=== PATIENT | male | born 1965 | race Caucasian/White ===

== ENCOUNTER 2020-07-29 19:24 | Inpatient (IN) | payer BC ==
[2020-07-29] MEDS ORDERED: ALBUTEROL NEB (CONC) 2.5 MG/0.5 ML INHALATION STA (20:05)
[2020-07-29] MEDS ORDERED: SODIUM CHLORIDE 0.9% 500 ML 500 ML IV STA (20:05)
[2020-07-29] MEDS ORDERED: IPRATROPIUM-ALBUTEROL 3 ML NEB INHALATION STA (20:05)
[2020-07-29] MEDS ORDERED: methylPREDNISolone SOD SUCCI 125 MG/2 ML VIAL IV STA (20:05)
--- NOTE | 2020-07-29 20:15 | ED ---
SOB HPI - General Source: patient Mode of arrival: ambulatory Limitations: no limitations <Yarelis Martins - Last Filed: 07/29/20 23:19> <Brielle Huffamn - Last Filed: 07/31/20 10:41> - General Chief Complaint: Shortness of Breath Stated Complaint: SOB/Chest Pain Time Seen by Provider: 07/29/20 19:44 - History of Present Illness Initial Comments: 55-year-old male patient presents to the emergency department today for evaluation of shortness of breath and right-sided chest pain. Patient is reporting a specific point of pain to the right upper chest especially when taking a deep breath. Patient states he does have a history of COPD due to a long history of smoking. He is still currently a smoker. States he does cough up sputum on a daily basis, reports no change in color and no hemoptysis. Denies any fever or chills. Denies nausea or vomiting. States he does feel more short of breath than usual especially with activity. States he was working outside all day yesterday is not sure if this is contributing. He did have COVID-19 in May. Denies history of blood clot or cardiac disease. Does not wear oxygen at home. Does not do any breathing treatments or have inhalers at this time. Patient denies any recent rash, abdominal pain, diarrhea, constipation, back pain, numbness, tingling, dizziness, weakness, hematuria, dysuria, urinary urgency, urinary frequency, headache, visual changes, or any other complaints. (Yarelis Martins) - Related Data Home Medications Medication Instructions Recorded Confirmed Acetaminophen/Caffeine [Excedrin 2 tab PO DAILY PRN 07/29/20 07/29/20 Tension Headache Cplt] Anibal Back & Body 2 tab PO DAILY PRN 07/29/20 07/29/20 Ibuprofen [Advil] 400 mg PO DAILY PRN 07/29/20 07/29/20 Previous Rx's Medication Instructions Recorded HYDROcodone/APAP 5-325MG [[place] 1 tab PO Q4HR PRN 3 Days #18 tab 07/30/20 5-325] amLODIPine [Norvasc] 10 mg PO DAILY #30 tab 07/30/20 metFORMIN HCL [Glucophage] 500 mg PO BID #60 tab 07/30/20 Allergies Allergy/AdvReac Type Severity Reaction Status Date / Time Penicillins Allergy Unknown Verified 07/29/20 23:31 Review of Systems ROS Other: All systems not noted in ROS Statement are negative. <Yarelis Martins - Last Filed: 07/29/20 23:19> ROS Other: All systems not noted in ROS Statement are negative. <Brielle Huffman Donn - Last Filed: 07/31/20 10:41> ROS Statement: Those systems with pertinent positive or pertinent negative responses have been documented in the HPI. Past Medical History Past Medical History: Diabetes Mellitus, Hypertension History of Any Multi-Drug Resistant Organisms: None Reported Past Surgical History: Back Surgery Past Psychological History: No Psychological Hx Reported Smoking Status: Current every day smoker Past Alcohol Use History: Occasional Past Drug Use History: None Reported <Yarelis Martins - Last Filed: 07/29/20 23:19> General Exam Limitations: no limitations General appearance: alert, in no apparent distress, other (This is a well- developed, well-nourished adult male patient in no acute distress. Vital signs upon presentation are temperature 97.9F, pulse 88, respirations 22, blood pressure 214/106, pulse ox 98% on room air.) Respiratory exam: Present: respiratory distress (Mild), rales (Right lung), accessory muscle use, other (Tachypnea, abdominal accessory muscle use.). Absent: wheezes, rhonchi, stridor Cardiovascular Exam: Present: regular rate, normal rhythm, normal heart sounds. Absent: systolic murmur, diastolic murmur, rubs, gallop, clicks GI/Abdominal exam: Present: soft, normal bowel sounds. Absent: distended, tenderness, guarding, rebound, rigid Neurological exam: Present: alert, oriented X3, CN II-XII intact Psychiatric exam: Present: normal affect, normal mood Skin exam: Present: warm, dry, intact, normal color. Absent: rash <Yarelis Martins - Last Filed: 07/29/20 23:19> Course Vital Signs 07/29/20 07/29/20 07/29/20 19:25 19:50 21:24 Temperature 97.9 F Pulse Rate 88 90 Respiratory 22 19 18 Rate Blood Pressure 214/106 186/90 O2 Sat by Pulse 98 Oximetry 07/29/20 07/29/20 07/29/20 21:34 21:41 22:58 Temperature Pulse Rate 76 76 82 Respiratory 18 Rate Blood Pressure 185/104 O2 Sat by Pulse 92 L Oximetry 07/30/20 00:00 Temperature Pulse Rate 82 Respiratory 16 Rate Blood Pressure 174/103 O2 Sat by Pulse 95 Oximetry Medical Decision Making - Lab Data Result diagrams: 07/29/20 20:09 07/29/20 20:09 - EKG Data -: EKG Interpreted by Ks - Radiology Data Radiology results: report reviewed, image reviewed <Yarelis Martins - Last Filed: 07/29/20 23:19> - Lab Data Result diagrams: 07/29/20 20:09 07/30/20 11:58 <Brielle Huffman - Last Filed: 07/31/20 10:41> - Medical Decision Making 55-year-old male patient presents to the emergency department today for evaluation of shortness of breath and right-sided chest pain started yesterday. Physical examination did reveal crackles throughout the right posterior lung browning. Labs reviewed and revealed normal white blood cell count. Creatinine elevated at 1.54. Glucose 175. Chest x-ray did show an 8 cm mass on the right lung. CT chest with contrast was obtained and shows an 8 cm x 9 cm x 6 cm bronchogenic mass that is compressing the superior vena cava and the truncal anterior. I did discuss findings and results with the patient. After a long discussion and encouragement by staff and his he is agreeable to staying in the hospital for further evaluation. Blood pressures have been elevated while here he was given a dose of Vasotec. He is also given a nicotine patch. He'll be admitted to [facility], Dr. Ruelas is accepting. (Yarelis Martins) I was available for consultation in the emergency department. The history and physical exam were done by the midlevel provider. I was consulted for this patients care. I reviewed the case with the midlevel provider and based on their presentation of the patient, I agree with the assessment, medical decision making and plan of care as documented. Chart was dictated using [employer] dictation software. Attempts were made to correct any dictation errors however some typographical errors may persist. Patient was seen during a national state of emergency due to the Covid-19 pandemic. (Brielle Huffman) - Lab Data Lab Results 07/29/20 07/29/20 07/29/20 Range/Units 20:09 20:09 20:09 WBC 8.0 (3.8-10.6) k/uL RBC 4.72 (4.30-5.90) m/uL Hgb 14.3 (13.0-17.5) gm/dL Hct 42.3 (39.0-53.0) % MCV 89.6 (80.0-100.0) fL MCH 30.4 (25.0-35.0) pg MCHC 33.9 (31.0-37.0) g/dL RDW 15.0 (11.5-15.5) % Plt Count 241 (150-450) k/uL MPV 6.9 Neutrophils % 71 % Lymphocytes % 21 % Monocytes % 5 % Eosinophils % 2 % Basophils % 1 % Neutrophils # 5.7 (1.3-7.7) k/uL Lymphocytes # 1.6 (1.0-4.8) k/uL Monocytes # 0.4 (0-1.0) k/uL Eosinophils # 0.1 (0-0.7) k/uL Basophils # 0.1 (0-0.2) k/uL PT 9.6 (9.0-12.0) sec INR 0.9 (<1.2) APTT 23.7 (22.0-30.0) sec Sodium 139 (137-145) mmol/L Potassium 4.8 (3.5-5.1) mmol/L Chloride 102 (98-107) mmol/L Carbon Dioxide 25 (22-30) mmol/L Anion Gap 12 mmol/L BUN 20 (9-20) mg/dL Creatinine 1.54 H (0.66-1.25) mg/dL Est GFR (CKD-EPI)AfAm 59 (>60 ml/min/1.73 sqM) Est GFR (CKD-EPI)NonAf 51 (>60 ml/min/1.73 sqM) Glucose 175 H (74-99) mg/dL Estimated Ave Glu mg/dL Hemoglobin A1c (4.0-6.0) % Plasma Lactic Acid Niall (0.7-2.0) mmol/L Calcium 9.9 (8.4-10.2) mg/dL Total Bilirubin 0.5 (0.2-1.3) mg/dL AST 25 (17-59) U/L ALT 14 (4-49) U/L Alkaline Phosphatase 120 (38-126) U/L Troponin I (0.000-0.034) ng/mL Total Protein 8.0 (6.3-8.2) g/dL Albumin 4.2 (3.5-5.0) g/dL Coronavirus (PCR) (Not Detectd) 07/29/20 07/29/20 07/29/20 Range/Units 20:09 20:09 20:09 WBC (3.8-10.6) k/uL RBC (4.30-5.90) m/uL Hgb (13.0-17.5) gm/dL Hct (39.0-53.0) % MCV (80.0-100.0) fL MCH (25.0-35.0) pg MCHC (31.0-37.0) g/dL RDW (11.5-15.5) % Plt Count (150-450) k/uL MPV Neutrophils % % Lymphocytes % % Monocytes % % Eosinophils % % Basophils % % Neutrophils # (1.3-7.7) k/uL Lymphocytes # (1.0-4.8) k/uL Monocytes # (0-1.0) k/uL Eosinophils # (0-0.7) k/uL Basophils # (0-0.2) k/uL PT (9.0-12.0) sec INR (<1.2) APTT (22.0-30.0) sec Sodium (137-145) mmol/L Potassium (3.5-5.1) mmol/L Chloride (98-107) mmol/L Carbon Dioxide (22-30) mmol/L Anion Gap mmol/L BUN (9-20) mg/dL Creatinine (0.66-1.25) mg/dL Est GFR (CKD-EPI)AfAm (>60 ml/min/1.73 sqM) Est GFR (CKD-EPI)NonAf (>60 ml/min/1.73 sqM) Glucose (74-99) mg/dL Estimated Ave Glu mg/dL 192 Hemoglobin A1c 8.3 H (4.0-6.0) % Plasma Lactic Acid Niall 1.3 (0.7-2.0) mmol/L Calcium (8.4-10.2) mg/dL Total Bilirubin (0.2-1.3) mg/dL AST (17-59) U/L ALT (4-49) U/L Alkaline Phosphatase (38-126) U/L Troponin I <0.012 (0.000-0.034) ng/mL Total Protein (6.3-8.2) g/dL Albumin (3.5-5.0) g/dL Coronavirus (PCR) (Not Detectd) 07/29/20 Range/Units 23:44 WBC (3.8-10.6) k/uL RBC (4.30-5.90) m/uL Hgb (13.0-17.5) gm/dL Hct (39.0-53.0) % MCV (80.0-100.0) fL MCH (25.0-35.0) pg MCHC (31.0-37.0) g/dL RDW (11.5-15.5) % Plt Count (150-450) k/uL MPV Neutrophils % % Lymphocytes % % Monocytes % % Eosinophils % % Basophils % % Neutrophils # (1.3-7.7) k/uL Lymphocytes # (1.0-4.8) k/uL Monocytes # (0-1.0) k/uL Eosinophils # (0-0.7) k/uL Basophils # (0-0.2) k/uL PT (9.0-12.0) sec INR (<1.2) APTT (22.0-30.0) sec Sodium (137-145) mmol/L Potassium (3.5-5.1) mmol/L Chloride (98-107) mmol/L Carbon Dioxide (22-30) mmol/L Anion Gap mmol/L BUN (9-20) mg/dL Creatinine (0.66-1.25) mg/dL Est GFR (CKD-EPI)AfAm (>60 ml/min/1.73 sqM) Est GFR (CKD-EPI)NonAf (>60 ml/min/1.73 sqM) Glucose (74-99) mg/dL Estimated Ave Glu mg/dL Hemoglobin A1c (4.0-6.0) % Plasma Lactic Acid Niall (0.7-2.0) mmol/L Calcium (8.4-10.2) mg/dL Total Bilirubin (0.2-1.3) mg/dL AST (17-59) U/L ALT (4-49) U/L Alkaline Phosphatase (38-126) U/L Troponin I (0.000-0.034) ng/mL Total Protein (6.3-8.2) g/dL Albumin (3.5-5.0) g/dL Coronavirus (PCR) Not Detected (Not Detectd) - EKG Data EKG Comments: EKG obtained at 1937 shows normal sinus rhythm with a ventricular rate of 80, VT interval 158, QR cheondoism 88, QT 368, QTC 424. No evidence of ST elevation or depression though the exam is somewhat limited due to motion artifact from tachypnea. (Yarelis Martins) - Radiology Data Two-view x-ray of the chest is obtained. Report is reviewed in its entirety. Impression by Dr. Ravi Corea shows new 8 cm bronchitic mass. Interstitial radiographic findings and correlate with a clinical diagnosis of interstitial phase pulmonary edema. CT chest with contrast was obtained. Report was reviewed in its entirety. 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 There is evidence that it is compressing the superior vena cava and the truncus anterior. (Yarelis Martins) Disposition Decision to Admit Reason: Admit from EC Decision Date: 07/29/20 Decision Time: 22:58 <Yarelis Martins - Last Filed: 07/29/20 23:19> <Brielle Huffman - Last Filed: 07/31/20 10:41> Clinical Impression: Mass of right lung, Dyspnea Disposition: ADMITTED IP TO THIS HOSP Condition: Serious
[2020-07-29 20:20] LABS: Basophils # (A) 0.1 k/uL (0-0.2); Basophils % (A) 1 %; Eosinophils # (A) 0.1 k/uL (0-0.7); Eosinophils % (A) 2 %; HCT 42.3 % (39.0-53.0); HGB 14.3 gm/dL (13.0-17.5); Lymphocytes # (A) 1.6 k/uL (1.0-4.8); Lymphocytes % (A) 21 %; MCH 30.4 pg (25.0-35.0); MCHC 33.9 g/dL (31.0-37.0); MCV 89.6 fL (80.0-100.0); Mean Platelet Volume 6.9; Monocytes # (A) 0.4 k/uL (0-1.0); Monocytes % (A) 5 %; Neutrophils # (A) 5.7 k/uL (1.3-7.7); Neutrophils % (A) 71 %; Platelet Count 241 k/uL (150-450); RBC 4.72 m/uL (4.30-5.90)
--- NOTE | 2020-07-29 20:29 | XR ---
EXAMINATION: XR chest 2V DATE AND TIME: 07/29/2020 8:16 PM CLINICAL INDICATION: PHH; difficulty breathing TECHNIQUE: Departmental protocol COMPARISON: 04/14/2012 FINDINGS: There is an approximately 8 cm right upper lobe ill-defined mass laterally. This is not seen on the p rior 2012 radiograph. The interface between the mass and the right suprahilar position is not well se en. There is a 1 cm nodular opacity medially cephalad to this mass. There are no other lung nodules. There is a coarse reticular pattern of increased density throughout the lung bases bilaterally, silho uetting the pulmonary vasculature arborization, and consistent with a clinical diagnosis of interstit ial phase pulmonary edema. Differential includes chronic interstitial lung change, and was not seen o n the prior 2012 radiograph. The pleural spaces are negative. The cardiac silhouette is not enlarged. The remainder of the mediastinal silhouette is unremarkable. The skeletal structures and soft tissues are negative for acute findings. IMPRESSION: 1) NEW 8 CM BRONCHOGENIC MASS. 2) Interstitial radiographic findings can correlate with a clinical diagnosis of interstitial phase pulmonary edema.
[2020-07-29] MEDS ORDERED: MORPHINE SULFATE 2 MG/ML SYRINGE IVP STA (20:31)
[2020-07-29] MEDS ORDERED: KETOROLAC 15 MG/ML 1 ML VIAL IVP STA (20:31)
[2020-07-29 20:32] LABS: Albumin 4.2 g/dL (3.5-5.0); Calcium 9.9 mg/dL (8.4-10.2); Potassium 4.8 mmol/L (3.5-5.1); Total Bilirubin 0.5 mg/dL (0.2-1.3)
[2020-07-29] MEDS ORDERED: RX INFO: IV CONTRAST WAS GIVEN 1 EACH MISC MISCELLANE PRN (20:33)
[2020-07-29 20:36] LABS: INR 0.9 (<1.2); Partial Thromboplastin Time 23.7 sec (22.0-30.0); Prothrombin Time 9.6 sec (9.0-12.0)
[2020-07-29] MEDS ORDERED: ENALAPRILAT 1.25 MG/ML 1 ML VIAL IVP STA (21:26)
--- NOTE | 2020-07-29 21:43 | CT ---
EXAMINATION TYPE: CT chest w con DATE OF EXAM: 07/29/2020 COMPARISON: Chest radiograph 07/21/2020 HISTORY: Rt upper lobe mass. Hx copd. CT DLP: 382.7 mGycm Automated exposure control for dose reduction was used. TECHNIQUE: CT scan of the chest is performed with IV Contrast, patient injected with 100 mL of Isovue 300. MIP Images are created on CT scanner and reviewed. 3D reconstructed images are created on an [employer]chron[employer] workstation and reviewed. FINDINGS: Advanced emphysematous changes are noted The bronchogenic mass measures 8 cm CC x 7 cm AP x 6 cm transverse. It is lobulated and centered late rally within the right upper lobe. There is contiguous opacity extending from the mass to prominent r ight suprahilar, right paratracheal, and precarinal adenopathy, with moderate caliber narrowing of th e superior vena cava and with mild caliber narrowing of the truncus anterior. There are a few scattered 2 x 1 cm and 1 x 1 cm soft tissue ill-defined nodules in subpleural positio n, related to the right hemidiaphragm. There is no pleural effusion, and no pneumothorax. OTHER: No additional significant abnormality is seen. IMPRESSION: BRONCHOGENIC NEOPLASM.
[2020-07-29] MEDS ORDERED: NICOTINE 21MG/24HR PATCH TRANSDERM STA (22:31)
[2020-07-29] MEDS ORDERED: NALOXONE 0.4 MG/ML 1 ML VIAL IV PRN (22:54)
[2020-07-29] MEDS ORDERED: ACETAMINOPHEN TAB 325 MG TAB PO PRN (22:54)
[2020-07-29] MEDS ORDERED: MORPHINE SULFATE 4 MG/ML SYRINGE IV PRN (22:54)
[2020-07-29] MEDS ORDERED: ONDANSETRON 4 MG/2 ML VIAL IVP PRN (22:54)
[2020-07-30] MEDS ORDERED: ENALAPRILAT 1.25 MG/ML 1 ML VIAL IVP STA (00:16)
[2020-07-30] MEDS ORDERED: ENALAPRILAT 1.25 MG/ML 1 ML VIAL IVP PRN (00:16)
--- NOTE | 2020-07-30 02:49 | P.HPIM ---
History of Present Illness H&P Date: 07/29/20 The patient is a 55-year-old male with a PMH of type II DM, hypertension, tobacco abuse, and COPD who presented to the emergency room with complaints of right-sided chest discomfort. The patient notes that he developed gradually worsening right-sided pleuritic chest pain 2 days ago. He reports that initially the pain was occurring only with coughing but since earlier today, also happened with deep inspiration. Reported that the pain has improved significantly at the time of interview. He denied additional complaints. Denied fever, chills, cough, weight loss, nausea, vomiting, abdominal pain. Patient underwent an extensive evaluation in the emergency room which was all reviewed. CT chest revealed a large bronchogenic mass consistent with neoplasm at 8 cm x 7 cm x 6 cm in the right upper lobe with adenopathy and ill-defined nodules in the right hemidiaphragm. EKG revealed normal sinus rhythm at 80 bpm. Laboratory evaluation was reviewed and was remarkable for creatinine 1.54. Review of Systems Pertinent positives and negatives as discussed in HPI, a complete review of systems was performed and all other systems are negative. Past Medical History Past Medical History: Diabetes Mellitus, Hypertension History of Any Multi-Drug Resistant Organisms: None Reported Past Surgical History: Back Surgery Past Psychological History: No Psychological Hx Reported Smoking Status: Current every day smoker Past Alcohol Use History: Occasional Past Drug Use History: None Reported Medications and Allergies Home Medications Medication Instructions Recorded Confirmed Type Acetaminophen/Caffeine [Excedrin 2 tab PO DAILY PRN 07/29/20 07/29/20 History Tension Headache Cplt] Anibal Back & Body 2 tab PO DAILY PRN 07/29/20 07/29/20 History Ibuprofen [Advil] 400 mg PO DAILY PRN 07/29/20 07/29/20 History Allergies Allergy/AdvReac Type Severity Reaction Status Date / Time Penicillins Allergy Unknown Verified 07/29/20 23:31 Physical Exam Vitals: Vital Signs Temp Pulse Resp BP Pulse Ox 07/29/20 22:58 82 18 185/104 92 L 07/29/20 21:41 76 07/29/20 21:34 76 07/29/20 21:24 90 18 186/90 07/29/20 19:50 19 07/29/20 19:25 97.9 F 88 22 214/106 98 Intake and Output 07/29/20 07/29/20 07/30/20 14:59 22:59 06:59 Other: Weight 83.915 kg General: non toxic, no distress, appears at stated age, normal weight Derm: no unusual rashes/lesions no unusual ecchymoses, warm, dry Head: atraumatic, normocephalic, symmetric Eyes: EOMI, no lid lag, anicteric sclera, pupils equal round reactive to light ENT: Nose and ears atraumatic, no thrush, no pharyngeal erythema Neck: No thyromegaly, no cervical lymphadenopathy, trachea midline, supple Mouth: no lip lesion, mucus membranes moist Cardiovascular: S1S2 reg, no murmur, positive posterior tibial pulse bilateral, no edema, capillary refill less than 2 seconds Lungs: Bilateral expiratory coarse breath sounds and mild wheezing, no rales, no accessory muscle use Abdominal: soft, nontender to palpation, no guarding, no appreciable organomegaly, normal bowel sounds Ext: no gross muscle atrophy, muscle strength 5 out of 5 in all 4 extremities grossly, no contractures, Neuro: CN II-XI grossly intact, light touch intact all 4 extremities, finger to nose within normal limits, Psych: Alert, oriented, appropriate affect Results CBC & Chem 7: 07/29/20 20:09 07/29/20 20:09 Labs: Abnormal Lab Results - Last 24 Hours (Table) 07/29/20 Range/Units 20:09 Creatinine 1.54 H (0.66-1.25) mg/dL Glucose 175 H (74-99) mg/dL Assessment and Plan Plan: Chest pain likely due to newly diagnosed large right sided bronchogenic neoplasm -Oncology consult for guidance regarding preferred site of biopsy -Patient notes that he does not wish to undergo conventional chemotherapy or radiation since his father from lung cancer after prolonged and painful course with the above -The patient wishes to discuss his case with oncology Hypertension -Patient with poor follow-up with his primary care. -Start [facility] Chronic conditions: Type II DM -Lispro insulin sliding scale with blood glucose monitoring -Check A1c DVT prophylaxis -Lovenox The patient is admitted with an anticipated more than 2 midnight stay for evaluation of chest pain CODE STATUS: Full Code Discussed with: Patient Anticipated discharge date: 2-[address]: Home A total of 35 minutes was spent on the care of this complex patient more than 50% of the time was spent in counseling and care coordination.
[2020-07-30] MEDS ORDERED: IPRATROPIUM-ALBUTEROL 3 ML NEB INHALATION PRN (02:57)
[2020-07-30] MEDS: IPRATROPIUM-ALBUTEROL 3 ML NEB INHALATION SCH ×2 (07:03→11:23)
[2020-07-30 08:33] VITALS: BP 152/75; RESP 18; TEMP 98
[2020-07-30] MEDS ORDERED: amLODIPine 10 MG TAB PO SCH (09:00)
[2020-07-30] MEDS ORDERED: ENOXAPARIN 40 MG/0.4 ML SYRINGE SQ SCH (09:00)
[2020-07-30] MEDS ORDERED: NICOTINE 21MG/24HR PATCH TRANSDERM SCH (09:00)
[2020-07-30 11:38] VITALS: PULSE 95
[2020-07-30 12:12] LABS: Hemoglobin A1C 8.3 % (4.0-6.0)
[2020-07-30 12:53] LABS: ALT 17 U/L (4-49); AST 20 U/L (17-59); African American GFR (CKD) 50 (>60 ml/min/1.73 sqM); Albumin 4.1 g/dL (3.5-5.0); Albumin/Globulin Ratio 1.1; Alkaline Phosphatase 120 U/L (38-126); Anion Gap 11 mmol/L; Blood Urea Nitrogen 32 mg/dL (9-20); Calcium 9.5 mg/dL (8.4-10.2); Carbon Dioxide 24 mmol/L (22-30); Chloride 97 mmol/L (98-107); Globulin 3.6 g/dL; LDH 622 U/L (313-618); Non-African American GFR(CKD) 44 (>60 ml/min/1.73 sqM); Potassium 5.6 mmol/L (3.5-5.1); Sodium 132 mmol/L (137-145); Total Bilirubin 0.4 mg/dL (0.2-1.3); Total Protein 7.7 g/dL (6.3-8.2); Uric Acid 8.2 mg/dL (3.5-8.5)
[2020-07-30 13:05] LABS: Glucose 597 mg/dL (74-99)
--- NOTE | 2020-07-30 13:14 | P.CONS ---
History of Present Illness - Reason for Consult Consult date: 07/30/20 New Large Lung Mass concerning for malignancy Requesting physician: Steve Ruelas - History of Present Illness Mr. Bae is a 55 year old male who has known history of Type 2 diabetes, Hypertension, Tobacco and Nicotine dependence, COPD. He presented with right sided chest pain and a persistent cough. Symptoms worsened over the past few days. Denied fever, chills, revent weight loss, nausea or vomiting. CT of the chest was performed revealing CT chest revealed a large bronchogenic mass consistent with neoplasm at 8 cm x 7 cm x 6 cm in the right upper lobe with adenopathy and ill-defined nodules in the right hemidiaphragm. He has had increased difficulty swallowing, it feels as though getting stuck, this maybe secondary to large mediastinal tumor. He is adament about not wanting chmeo or radiation if cancer, although as we continue to educate he is more open to the idea given there are clear expectations of a therapy recommendation. Will ask Nursing to schedule with Dr. Guillen for Bronch approach, and Dr. Ferro one week. He does not take care of himself, does not drink water, manage his diabetes, he smokes and drinkis quite a bit of caffeine. Review of Systems All systems: negative Constitutional: Reports as per HPI Past Medical History Past Medical History: Diabetes Mellitus, Hypertension History of Any Multi-Drug Resistant Organisms: None Reported Past Surgical History: Back Surgery Past Psychological History: No Psychological Hx Reported Smoking Status: Current every day smoker Past Alcohol Use History: Occasional Past Drug Use History: None Reported Medications and Allergies Home Medications Medication Instructions Recorded Confirmed Type Acetaminophen/Caffeine [Excedrin 2 tab PO DAILY PRN 07/29/20 07/29/20 History Tension Headache Cplt] Anibal Back & Body 2 tab PO DAILY PRN 07/29/20 07/29/20 History Ibuprofen [Advil] 400 mg PO DAILY PRN 07/29/20 07/29/20 History amLODIPine [Norvasc] 10 mg PO DAILY #30 tab 07/30/20 Rx Allergies Allergy/AdvReac Type Severity Reaction Status Date / Time Penicillins Allergy Unknown Verified 07/29/20 23:31 Physical Exam Vitals: Vital Signs Temp Pulse Pulse Resp BP BP BP 07/30/20 11:23 80 07/30/20 08:00 98.0 F 95 18 152/75 07/30/20 07:13 76 07/30/20 07:03 76 07/30/20 01:21 98.7 F 91 160/87 07/30/20 01:10 98.7 F 91 160/87 07/30/20 00:00 82 16 174/103 07/29/20 22:58 82 18 185/104 07/29/20 21:41 76 07/29/20 21:34 76 07/29/20 21:24 90 18 186/90 07/29/20 19:50 19 07/29/20 19:25 97.9 F 88 22 214/106 Pulse Ox 07/30/20 11:23 07/30/20 08:00 92 L 07/30/20 07:13 07/30/20 07:03 07/30/20 01:21 98 07/30/20 01:10 98 07/30/20 00:00 95 07/29/20 22:58 92 L 07/29/20 21:41 07/29/20 21:34 07/29/20 21:24 07/29/20 19:50 07/29/20 19:25 98 Intake and Output 07/29/20 07/30/20 07/30/20 22:59 06:59 14:59 Other: Weight 83.915 kg 83.915 kg - Constitutional General appearance: cooperative, no acute distress - EENT Eyes: EOMI, PERRLA, poor dentition ENT: hard of hearing, NA/AT, normal oropharynx Results CBC & Chem 7: 07/29/20 20:09 07/29/20 20:09 Labs: Abnormal Lab Results - Last 24 Hours (Table) 07/29/20 Range/Units 20:09 Creatinine 1.54 H (0.66-1.25) mg/dL Glucose 175 H (74-99) mg/dL CT scan - chest: report reviewed Assessment and Plan (1) Dysphagia Current Visit: Yes Status: Acute Code(s): R13.10 - DYSPHAGIA, UNSPECIFIED SNOMED Code(s): 82111445 (2) Acute renal insufficiency Current Visit: Yes Status: Acute Code(s): N28.9 - DISORDER OF KIDNEY AND URETER, UNSPECIFIED SNOMED Code(s): 863946908 (3) Mass of right lung Current Visit: Yes Status: Acute Code(s): R91.8 - OTHER NONSPECIFIC ABNORMAL FINDING OF LUNG FIELD SNOMED Code(s): 060817363 Plan: Assessment and Recommendations. 1. large Right upper Lobe 8cm Lung Mass: - Suspicious for malignancy, differentials include lung cancer primary versus mediastinal Lymphoma - Patient will be set up to see Dr. Guillen for Bronch and Biopsy hopefully this week. - CT abdomen and Pelvis with contrast this coming week as well as MRI Brain with and Without contrast for complete staging - After above to see Dr. Ferro within one week of Biopsy please 2. Dysphagia: - Possibly from compressive effects of mass - He is very scared of treatment measures such as radiation or chemo, although as explained each modality has a specific goal. Therefore if radiation is recommended the goal is to shrink to relieve symptoms, he seems to be more open to discussing the recommendations after we know more information when assured he will know the goals and potential risks and benefits clearly. His Rimma was also on phone and able to answer questions. 3. Uncontrolled Health Problems: - He refuses to control hhis known diabetes with insulin or other medications, he has no desire to quit smoking, He has no desire to drink water. Explained if he is thinking about moving forward with a treatment that could potentially increase quality of life or lengthen quantity he will not respond well without having better management of the full picture and therefore would most likely endure many unecessary side effects. He is willing to follow-up wo hear all recommendations, but at this time states he will discuss with . 4. Acute Renal Insufficiency: - Likely secondary to poor water intake and diet as well as uncontrolled diabetes. - Will check Urinc acid, LDH for evidence of tumor lysis Discussed with primary team and rn Thank you for allowing us to participate in the care of this patient, we will set up for follow-up and further testing as outpatient.
--- NOTE | 2020-07-30 13:26 | P.DS ---
Providers Date of admission: 07/30/20 02:49 Expected date of discharge: 07/30/20 Attending physician: Steve Ruelas MD Consults: 07/30/20 02:44 Consult Physician Urgent Consulting Provider: Maximo Ferro Consult Reason/Comments: Lung ca Do you want consulting provider notified?: Yes Primary care physician: Noel Chaparro MD Hospital Course: 1. Right Sided Lung mass 2. HTN 3. DM II 4. Nicotine Use 55 year old man with HTN/DM, Nicotine Use presented with right sided chest pain and was found to have RUL 8cm lung mass. He was seen by oncology, who recommended that patient be seen by pulmonology for a bronchoscopy, then with Oncology within one week, and these appointments were arranged. Pt appeared clinically stable, and so was discharged home with plan for outpatient workup going forward. He had indicated that he would not want radiation or chemotherapy due to prior experiences with his dad. However, he would likely greatly benefit from counseling regarding improvement in cancer care in last several decades. He would like to pursue further workup and is amenable to a conversation regarding treatment. Prescribed norco for pain control on discharge, MIPS reviewed. Assessment: Gen: awake, alert HEENT: normocephalic, atraumatic, good hearing acuity, moist mucous membranes Resp: good air exchange, breathing comfortably with no accessory muscle use, clear to auscultation without wheezing, right upper posterior lung field with crackles CVS: good distal perfusion x 4, regular rate and rhythm without murmurs GI: soft, NTTP, ND : no SPT, no CVAT, corbin catheter not present MSK: no pitting edema, no clubbing Neuro: non-focal, moving all extremities Psych: cooperative, euthymic mood Patient Condition at Discharge: Serious Plan - Discharge Summary New Discharge Prescriptions: New amLODIPine [Norvasc] 10 mg PO DAILY #30 tab HYDROcodone/APAP 5-325MG [[place] 5-325] 1 tab PO Q4HR PRN 3 Days #18 tab PRN Reason: Pain Continue Ibuprofen [Advil] 400 mg PO DAILY PRN PRN Reason: BACK PAIN Anibal Back & Body 2 tab PO DAILY PRN PRN Reason: BACK PAIN Acetaminophen/Caffeine [Excedrin Tension Headache Cplt] 2 tab PO DAILY PRN PRN Reason: BACK PAIN Discharge Medication List Acetaminophen/Caffeine [Excedrin Tension Headache Cplt] 2 tab PO DAILY PRN 07/29/20 [History] Ainbal Back & Body 2 tab PO DAILY PRN 07/29/20 [History] Ibuprofen [Advil] 400 mg PO DAILY PRN 07/29/20 [History] HYDROcodone/APAP 5-325MG [[place] 5-325] 1 tab PO Q4HR PRN 3 Days #18 tab 07/30/20 [Rx] amLODIPine [Norvasc] 10 mg PO DAILY #30 tab 07/30/20 [Rx] Follow up Appointment(s)/Referral(s): Maximo Ferro MD [STAFF PHYSICIAN] - 1 Week Jake Schafer MD [STAFF PHYSICIAN] - 1 Week Noel Chaparro MD [Primary Care Provider] - 1-2 days Arun Guillen MD [STAFF PHYSICIAN] - 08/02/20 9:30 am Discharge Disposition: HOME SELF-CARE
[2020-07-30] MEDS ORDERED: SODIUM CHLORIDE 0.9% 1,000 ML IV ONE (13:30)
[2020-07-30] MEDS ORDERED: INSULIN ASPART (NovoLOG) 100 UNIT/ML VIAL SQ ONE ×2 (13:31→16:43)
[2020-07-30 16:39] LABS: Glucose,Whole Blood 339 mg/dL (75-99)
--- NOTE | 2020-08-02 02:57 | CDI ---
Documentation Clarification Form Date: 08/02/2020 From: Mark Arana Phone: If you have a question about this query, please contact Penelope Webber, [employer] at [phone] between 8am and 5pm. Admit Date: 07/30/2020 02:49:00 AM Patient Name: Lex Bae Visit Number: [id number] Discharge Date: 07/30/2020 05:25:00 PM ATTENTION: The Clinical Documentation Specialists (CDI) and [facility] Coding Staff appreciate your assistance in clarifying documentation. Please respond to the clarification below the line at the bottom and electronically sign. The CDI & [facility] Coding staff will review the response and follow-up if needed. Please note: Queries are made part of the Legal Health Record. If you have any questions, please contact the author of this message via ITS. Dr. Steve Ruelas MD., Acute renal insufficiency was documented in the 07/30 consult note. History/Risk Factors:Diabetes Mellitus, Hypertension Clinical Indicators: 55 year old man with HTN/DM, Nicotine Use presented with right sided chest pain and was found to have RUL 8cm lung mass Current BUN/Cr/GFR: 1.54H Treatment: Iv fluids Acute Renal Insufficiency: - Likely secondary to poor water intake and diet as well as uncontrolled diabetes. - Will check Urinc acid, LDH for evidence of tumor lysis In order to capture the severity of condition, please clarify if the condition signifies: Acute kidney injury Other, please specify Unable to determine -- no baseline available MTDD
== END 2020-07-30 17:25 | disposition home or self-care (01) | DRG 182 ==
LOC: EC 19:24 → 6NMEDSUR 23:00 → OBSVTOIN 07-30 02:49
PROVIDERS: ADMIT Internal Medicine; ATTEND Internal Medicine
DX: C34.91 Malignant neoplasm of unspecified part of right bronchus or lung (principal); E11.9 Type 2 diabetes mellitus without complications; F17.200 Nicotine dependence, unspecified, uncomplicated; G44.209 Tension-type headache, unspecified, not intractable; I10 Essential (primary) hypertension; Z86.16 Personal history of COVID-19; J44.9 Chronic obstructive pulmonary disease, unspecified; Z20.822 Contact with and (suspected) exposure to COVID-19; R13.10 Dysphagia, unspecified; N28.9 Disorder of kidney and ureter, unspecified; Z79.899 Other long term (current) drug therapy; Z80.1 Family history of malignant neoplasm of trachea, bronchus and lung; Z88.0 Allergy status to penicillin
CPT/HCPCS: 36415; 71046; 71260; 80053; 83036; 83605; 83615; 83735; 84484; 84550; 85025; 85610; 85730; 87635; 93005; 94640; 96361; 96374; 96375; 99285

== ENCOUNTER 2020-08-04 11:03 | Day surgery (SDC) | payer BC ==
[2020-08-02 16:21] VITALS: BMI 27.2
[~2020-08-04 11:03] MED LIST: ALBUTEROL NEB (CONC) 2.5 MG/0.5 ML INHALATION ONE; LACTATED RINGERS 1,000 ML IV SCH; LIDOCAINE 1% (10MG/ML) FOR IV START INTRADERMA PRN; LIDOCAINE 2% (PF) 20 MG/ML 5 ML VIAL INHALATION ONE; LIDOCAINE VISCOUS 300 MG/15 ML CUP MUCOUS MEM ONE; SODIUM CHLORIDE 0.9% 1,000 ML IV SCH
[2020-08-04 11:54] LABS: Glucose,Whole Blood 209 mg/dL (75-99)
[2020-08-04] MEDS ORDERED: SUCCINYLCHOLINE CHLORIDE 100 MG/5 ML SYR IV ONE (12:19)
[2020-08-04] MEDS ORDERED: MIDAZOLAM 2 MG/2 ML VIAL ONE (12:19)
[2020-08-04] MEDS ORDERED: fentaNYL (PF) 50 MCG/ML 2 ML AMP ONE (12:19)
[2020-08-04] MEDS ORDERED: PROPOFOL 10 MG/ML 20 ML VIAL IV ONE (12:19)
[2020-08-04] MEDS ORDERED: LIDOCAINE 1% INJ 10MG/ML (20 ML MDV) ONE (12:19)
--- NOTE | 2020-08-04 13:08 | P.PCN ---
Date of Procedure: 08/04/20 Preoperative Diagnosis: RUL mass, mediastinal adenopathy Postoperative Diagnosis: RUL mass, mediastinal adenopathy Procedure(s) Performed: Flexible bronchoscopy Transbronchial biopsy of the right upper lobe mass Transbronchial needle aspirate of the right paratracheal lymph node Bronchiolar lavage of the right upper lobe Anesthesia: JENNIFER Surgeon: Arun Guillen Estimated Blood Loss (ml): 0 Pathology: other Condition: stable Disposition: same day Operative Findings: This procedure was done in the endoscopy suite. The procedure was done while the patient was being intubated on a mechanical ventilator. The intubation process was done by PRINTER TECHNICIAN the bedside. Adequate oxygenation was achieved. Following that, an adapter was attached to the #9 orotracheal tube that the patient was intubated with and the procedure was initiated. The flexible bronchoscope was introduced in the distal trachea and airways inspection was done. Distal trachea, and the bilateral mainstem bronchi were within normal limits. Exertional left side included the left upper lobe bronchus, lingular segment, left lower lobe bronchus and the various segments and all of the airways on the left side were within normal limits. Examination of the right-sided fluid the right mainstem bronchus that was within normal. Bronchus intermedius, right middle lobe and the right lower lobe bronchi lungs various segments were all within normal limits. Bronchoscope was moved to the right upper lobe. Right upper lobe was patent. The 3 different segment of the right upper lobe were adequately visualized. The apical segment was extrinsically compressed and I was unable to pass the bronchoscope to see the various subsegments. The posterior segment was partially compressed and the anterior segment was minimally compressed. The anterior and posterior site was were still patent. The 2 subsegments of the posterior segments were visualized. The 2 subsegments in the anterior segment were visualized. At this point, bronchoscope was moved to the distal trachea and utilizing a 19-gauge and a 21-g auge cytology and histology needles, chest prior to biopsies of the right paratracheal lymph node/mass was done. Adequacy of the samples were confirmed by pathology at the bedside. The samples were somewhat cloudy and necrotic consistent with necrotic tumor. Several passes were obtained without any complications and there was no bleeding encountered. Following that, the bronchoscope was moved to the right upper lobe. The apical segment was first biopsy. I was unable to push the forceps into the subsegment of the apical segment of the right upper lobe. There was resistance probably due to anatomic distortion. Test bronchial biopsies of the apical segment was obtained. Following that, transbronchial biopsy of the posterior segment was obtained under fluoroscopic guidance. At the completion of the procedure, a bronchioloalveolar lavage of the apical segment of the posterior segment of the right upper lobe was done. A total of 100 mL of fluid was infused and tendency was suctioned back. The aspirate was nonbloody. No complications. Bronchoscope was removed. Patient will be extubated and following that the patient will be having a chest x-ray done to rule out pneumothorax and the midchest recovery in stable condition. The patient will see back in our office in 1 week to discuss the results of the biopsy and make further recommendations.
[2020-08-04 13:30] VITALS: TEMP 97
[2020-08-04 13:38] LABS: Glucose,Whole Blood 184 mg/dL (75-99)
--- NOTE | 2020-08-04 13:53 | FL ---
EXAMINATION TYPE: FL bronchoscopy DATE OF EXAM: 08/04/2020 COMPARISON: NONE HISTORY: Abnormal chest CT, right upper lobe lung mass Fluoroscopy support supplied to the referring clinician. See dictated report from pulmonary, 28 seco nds fluoroscopy time, 2 intraoperative images document the procedure
[2020-08-04 13:54] VITALS: RESP 18
[2020-08-04 14:15] VITALS: BP 158/90; PULSE 86
--- NOTE | 2020-08-04 14:25 | XR ---
EXAMINATION TYPE: XR chest 1V portable DATE OF EXAM: 08/04/2020 COMPARISON: Prior chest x-ray 07/29/2020 HISTORY: Status post biopsy and bronchoscopy TECHNIQUE: Single frontal view of the chest is obtained. FINDINGS: There is no evident pneumothorax or pleural effusion. Patient's right upper lobe and lung mass, prominence of interstitium is again noted. Cardiac mediastinal silhouette is stable. IMPRESSION: No evident complication status post bronchoscopy and biopsy
== END 2020-08-04 14:47 | disposition home or self-care (01) ==
LOC: ORWHC2ENDO 11:03
PROVIDERS: ATTEND Internal Medicine Critical Care Medicine
DX: C34.11 Malignant neoplasm of upper lobe, right bronchus or lung (principal); R59.0 Localized enlarged lymph nodes; R13.10 Dysphagia, unspecified; J44.9 Chronic obstructive pulmonary disease, unspecified; E11.9 Type 2 diabetes mellitus without complications; I10 Essential (primary) hypertension; F17.210 Nicotine dependence, cigarettes, uncomplicated; Z88.0 Allergy status to penicillin; Z79.891 Long term (current) use of opiate analgesic; Z79.899 Other long term (current) drug therapy; Z79.1 Long term (current) use of non-steroidal anti-inflammatories (NSAID); Z79.84 Long term (current) use of oral hypoglycemic drugs; Z98.890 Other specified postprocedural states; Z90.89 Acquired absence of other organs; Z86.718 Personal history of other venous thrombosis and embolism; Z79.51 Long term (current) use of inhaled steroids; Z83.3 Family history of diabetes mellitus; Z82.49 Family history of ischemic heart disease and other diseases of the circulatory system; Z80.1 Family history of malignant neoplasm of trachea, bronchus and lung; Z80.0 Family history of malignant neoplasm of digestive organs
CPT/HCPCS: 88108; 88305; 88173; 88342; 71045; 31628; 31629; 31624; J2250; J2001; J3010; J0330; J2704; 31633

== ENCOUNTER → 2020-08-12 | Outpatient (CLI) | payer BC ==
--- NOTE | 2020-08-12 18:37 | MR ---
EXAMINATION TYPE: MR brain wo/w con DATE OF EXAM: 08/12/2020 COMPARISON: Head CT 07/03/2007 , 04/15/2013 HISTORY: Initial workup due to lung ca dx TECHNIQUE: Multiplanar, multisequence images of the brain and brainstem is performed without and with IV contras t, utilizing 9 mL intravenous Gadavist . FINDINGS: Diffusion weighted images demonstrate no evidence of a recent infarct or other diffusion ab normality. There is no extra-axial fluid collection. Scattered periventricular, subcortical hyperin tensities are present on inversion recovery T2-weighted sequences, approximately 20-25 lesions are pr esent. The ventricular system and cisternal spaces are normal in size and appearance. The brain volu me is age appropriate. Midline structures demonstrate normal morphology. The craniocervical junction appears within normal limits. Post contrast images demonstrate no abnormal enhancement. The dural venous sinuses appear pa tent. The visualized sinuses are remarkable for chronic focus of probable inflammatory change or poly p within the left sphenoid sinus, ethmoid air cells show mucoperiosteal thickening as do the maxillar y sinuses. And the globes are intact. IMPRESSION: Nonspecific white matter demyelination. No enhancing lesion to suggest metastasis.
== END | disposition home or self-care (01) ==
LOC: RADMRIMAIN 10:45
PROVIDERS: ATTEND Internal Medicine Hematology & Oncology
DX: C34.12 Malignant neoplasm of upper lobe, left bronchus or lung (principal); G37.8 Other specified demyelinating diseases of central nervous system
CPT/HCPCS: 70553; A9585

== ENCOUNTER → 2020-08-13 | Outpatient (CLI) | payer BC ==
--- NOTE | 2020-08-16 10:09 | PE ---
EXAMINATION TYPE: PET CT fusion skull to thigh DATE OF EXAM: 08/13/2020 CLINICAL HISTORY: 55-year-old male initial staging lung cancer. TECHNIQUE: Following the intravenous administration of 11.0 mCi of F-18 FDG, whole body images are performed from the skull base to the midthigh. Images are reviewed on the computer in the coronal, a xial, and sagittal planes. Reconstructed rotating images are created on independent workstation and reviewed on the computer. A localization and attenuation correction CT is performed in conjunction with the PET scan. Glucose level: 174 mg/dL COMPARISON: CT chest 07/21/2020. FINDINGS: PET: Vague focal area of mildly increased activity within the region of the left parotid gland. There may be a mildly prominent 6 mm lymph node or other nodule in this location, referred axial image 29. Shor t interval follow-up contrast enhanced CT neck recommended in 3 months time. Otherwise, physiologic FDG uptake within the neck. There is a dominant right upper lobe mass demonstrating intense hypermetabolism and some central phot openia compatible with central necrosis. The mass measures up to 6.4 cm. Tiny 6 mm satellite nodule along the lateral margin of the mass and additional 6 cm satellite nodule along the posterior margin of the mass. These are too small for accurate PET characterization. In addition, there is abnormal intense hypermetabolism involving an anterior medial right upper lobe subpleural pulmonary nodule measuring 1.4 cm. Abnormal 1.5 cm hypermetabolic right basilar pulmonary nodule. Additional hypermetabolic 1.0 cm basilar right middle lobe pulmonary nodule. 3 right-sided pericardiac lymph nodes are present demonstrating moderate intense hypermetabolism damon uring up to 1.9 and 1.5 cm. There is a intensely hypermetabolic 2.3 cm right hilar lymph node. Large lower right paratracheal lymph node shows extensive central photopenia measuring up to 4.4 x 3. 5 cm suggesting prominent central necrosis. Additional hypermetabolic small 9 mm nodule located along the posterior right renal space probably fa r down in the posterior costophrenic angle. Right infrahilar lymph node measuring 2.3 cm shows no significant FDG uptake and may be reactive. Intensely hypermetabolic 1.8 cm left adrenal nodule. Otherwise, physiologic FDG uptake within the abdomen and pelvis otherwise noted. ATTENUATION CORRECTION CT: Leftward nasal septal deviation. Visualized paranasal sinuses and mastoid air cells are clear. Heart normal size without pericardial effusion. Scattered three-vessel coronary calcifications are pr esent. Ectatic ascending aorta 3.9 cm. Bovine configuration to the aortic arch. Moderate centrilobul ar emphysema with prominent dependent atelectasis in the lungs. Breathing motion artifact. No dilated small bowel, free fluid, or free air. Scattered mild to moderate prostatic calcifications. Normal appendix. Ectatic infrarenal abdominal ao rta measuring up to 2.8 cm. Mild stool burden. No pericolonic inflammatory change. Bladder is collapsed but shows circumferential wall thickening that could be chronic bladder wall hyp ertrophy or cystitis. Prostate gland mildly enlarged at 4.6 cm. No abnormal fluid collection in the p urvashi or pelvic lymphadenopathy. Bones: Mild degenerative change at the hips. No osseous destructive process. IMPRESSION: 1. Centrally necrotic 6.4 cm right upper lobe lung cancer with right hilar and lower right paratrache al lymphadenopathy. The lower right paratracheal lymph node also shows extensive central necrosis brent suring up to 4.4 cm. 2. Metastatic ipsilateral right-sided pulmonary nodules in the right upper lobe anteriorly (1.4 cm) a nd 2 nodules at the right base (measuring up to 1.5 cm). A small 9 mm metastatic deposit is also pres ent in the far posterior right costophrenic sulcus. 3. In addition, there are 3 hypermetabolic right paracardiac metastatic lymph nodes measuring up to 1 .9 cm. 4. Hypermetabolic 1.8 cm left adrenal nodule suspicious for metastases as well. 5. Very mild focal uptake involving a 6 mm nodule within the left parotid gland. This may represent a reactive parotid space lymph node. Three-month follow-up contrast-enhanced CT of the neck recommende d to reassess this area.
== END | disposition home or self-care (01) ==
LOC: RADPETMAIN 13:23
PROVIDERS: ATTEND Internal Medicine Critical Care Medicine
DX: C34.11 Malignant neoplasm of upper lobe, right bronchus or lung (principal); C79.89 Secondary malignant neoplasm of other specified sites; C34.81 Malignant neoplasm of overlapping sites of right bronchus and lung; E27.8 Other specified disorders of adrenal gland; K11.8 Other diseases of salivary glands; R91.8 Other nonspecific abnormal finding of lung field; R59.0 Localized enlarged lymph nodes
CPT/HCPCS: 78815; A9552